=== PATIENT | female | born 1935 | race African-American/Black ===

== ENCOUNTER 2017-09-05 02:14 | Emergency (ER) | payer MEDICARE, OTHER ==
[~2017-09-05] VITALS: Ht 162.6 cm; Wt 72.6 kg
--- NOTE | 2017-09-05 02:28 | PHYS DOC ---
Past Medical History Past Medical History: Hypertension Past Surgical History: No Surgical History Additional Information: non smoker Alcohol Use: None Adult General Chief Complaint Chief Complaint: ANKLE PROBLEM HPI HPI Patient is a 82 year old female who presents with left foot pain. Pain started before she went to bed. No trauma or injury. She states "it has kept me up all night." She denies any other complaints. No fever, no chest pain, no shortness or air. No abdominal pain, no nausea, vomiting or diarrhea. Review of Systems Review of Systems Constitutional: Denies fever or chills Eyes: Denies change in visual acuity, redness, or eye pain HENT: Denies nasal congestion or sore throat Respiratory: Denies cough or shortness of breath Cardiovascular: No chest pain GI: Denies abdominal pain, nausea, vomiting, bloody stools or diarrhea : Denies dysuria or hematuria Musculoskeletal: Occasional back pain; left foot pain. Integument: Denies rash or skin lesions Neurologic: Denies headache, focal weakness or sensory changes All other systems were reviewed and found to be within normal limits, except as documented in this note. Current Medications Current Medications Current Medications Medications (Trade) Dose Ordered Sig/Katy Start Time Stop Time Status Last Admin Dose Admin Acetaminophen/ Codeine Phosphate (Tylenol #3) 2 tab 1X ONCE 09/05/17 03:00 09/05/17 03:01 DC 09/05/17 03:01 2 TAB Clonidine HCl (Catapres) 0.2 mg 1X ONCE 09/05/17 03:00 09/05/17 03:01 DC 09/05/17 03:00 0.2 MG Naproxen (Naprosyn) 250 mg 1X ONCE 09/05/17 03:00 09/05/17 03:01 DC 09/05/17 03:01 250 MG Allergies Allergies Allergies Coded Allergies Type Severity Reaction Last Updated Verified No Known Drug Allergies 09/05/17 No Physical Exam Physical Exam Constitutional: Well developed, well nourished, no acute distress, non-toxic appearance. HENT: Normocephalic, atraumatic, bilateral external ears normal, oropharynx moist, no oral exudates, nose normal. Eyes: PERRLA, EOMI, conjunctiva normal, no discharge. Neck: Normal range of motion, no tenderness, supple, no stridor. Cardiovascular:Heart rate regular rhythm, no murmur Lungs & Thorax: Bilateral breath sounds clear to auscultation Abdomen: Bowel sounds normal, soft, no tenderness, no masses, no pulsatile masses. Skin: Warm, dry, no erythema, no rash. Back: No tenderness, no CVA tenderness. Extremities: Left foot: tender to the dorsum. No swelling. Slight warmth. No pallor. NVI distally. No redness. Normal pulses. Neurologic: Alert and oriented X 3, normal motor function, normal sensory function, no focal deficits noted. Psychologic: Affect normal, judgement normal, mood normal. Current Patient Data Vital Signs Vital Signs Date Time Temp Pulse Resp B/P (MAP) Pulse Ox O2 Delivery O2 Flow Rate FiO2 09/05/17 03:01 16 98 09/05/17 03:00 97 212/103 (139) Room Air 09/05/17 02:26 98.6 98.6 Radiology/Procedures Radiology/Procedures Xray foot left interpreted at 0225 am: Course & Med Decision Making Course & Med Decision Making One consideration is gout. She is non compliant with her anti-hypertensive; Clonidine po and naprosyn 250 mg. She has not taken her BP meds since Monday. Xray with no fracture or soft tissue gas or emphysema. Home wtih Rx: Naprosyn 250 and tylenol #3 (10 tabs). Call her PCP in the am to set up follow up. STRESSED THAT SHE NEEDS TO TAKE HER BP MEDS. The son added after discharge that she doesn't in fact have any more meds at home. Refilled Losartan 25 mg and the son will have her see the doctor this week. She was dosed here with the Losartan. Darya Disclaimer Darya Disclaimer This electronic medical record was generated, in whole or in part, using a voice recognition dictation system. Departure Departure Impression: Primary Impression: Left foot pain Additional Impression: Accelerated hypertension Disposition: HOME, SELF-CARE Condition: STABLE Patient Instructions: Foot Contusion, Gout Scripts Losartan Potassium (LOSARTAN POTASSIUM) 25 Mg Tablet 25 MG PO DAILY, #20 TAB Prov: ANABEL SOW MD 09/05/17 Acetaminophen With Codeine (TYLENOL WITH CODEINE #3 TABLET) 1 Each Tablet 1 TAB PO PRN Q4HRS Y for PAIN, #10 TAB Prov: ANABEL SOW MD 09/05/17 Naproxen (NAPROSYN) 500 Mg Tablet 250 MG PO BID Y for foot pain, #20 TAB Prov: ANABEL SOW MD 09/05/17 Problem Qualifiers ANABEL SOW MD Sep 05, 2017 02:28
[2017-09-05] MEDS ORDERED: ACET-704 PO (02:45)
[2017-09-05] MEDS ORDERED: NAPR-683 PO (02:45)
[2017-09-05] MEDS ORDERED: cloNIDine HCL 0.1 MG TABLET PO ONE (03:00)
[2017-09-05] MEDS ORDERED: NAPROXEN 250 MG TABLET PO ONE (03:00)
[2017-09-05] MEDS ORDERED: ACETAMINOPHEN/CODEINE 300/30MG TABLET. PO ONE (03:00)
[2017-09-05] MEDS ORDERED: LOSA25TA4 PO (03:39)
[2017-09-05 03:43] VITALS: BP 213/104
[2017-09-05] MEDS ORDERED: LOSARTAN POTASSIUM 50 MG TABLET. PO ONE (03:45)
--- NOTE | 2017-09-05 08:14 | RAD ---
Indication: Left foot pain. Time of exam 0307 hours. The metatarsals are intact. The phalanges appear intact. Midfoot and hindfoot are unremarkable. No fractures are seen. Impression: No acute abnormality is detected.
== END 2017-09-05 03:49 | disposition home or self-care (01) ==
LOC: ER 02:14
DX: M79.672 Pain in left foot (principal); I10 Essential (primary) hypertension
CPT/HCPCS: 73630; 99284